=== PATIENT | female | born 1985 | race Caucasian/White ===

== ENCOUNTER 2016-05-13 07:42 | Inpatient (IN) | payer BC ==
[2016-05-13] MEDS ORDERED: METHYLERGONOVINE 0.2 MG/ML 1 ML AMP IM PRN (08:42)
[2016-05-13] MEDS ORDERED: OXYTOCIN 10 UNIT/ML 1 ML VIAL IM PRN (08:42)
[2016-05-13] MEDS ORDERED: LIDOCAINE 1% (PF) 10 MG/ML (30 ML SDV) SQ PRN (08:42)
[2016-05-13] MEDS ORDERED: CARBOPROST TROMETHAMINE 250 MCG/ML 1 ML AMP IM PRN (08:42)
[2016-05-13] MEDS ORDERED: TERBUTALINE 1 MG/ML VIAL SQ PRN (08:42)
[2016-05-13] MEDS ORDERED: OXYTOCIN 30 UNITS/500 ML NS 30 UNIT in SALINE 1 500ML.BAG IV SCH ×2 (08:45→14:00)
[2016-05-13 09:45] LABS: Appearance,Urine Clear (Clear); Bacteria,Urine Rare /hpf; Bilirubin,Urine Negative (Negative); Glucose,Urine (UA) Negative (Negative); Ketones,Urine Negative (Negative); Leukocyte Esterase,Urine Negative (Negative); Mucus,Urine Rare /hpf; Nitrite,Urine Negative (Negative); PH, Urine 6.5 (5.0-8.0); Particle Count 829; Protein,Urine Negative (Negative); RBC,Urine 1 /hpf (0-5); Specific Gravity,Urine 1.007 (1.001-1.035); UA Billing (MACRO vs. MICRO) MICRO; Urobilinogen,Urine <2.0 mg/dL (<2.0); WBC,Urine <1 /hpf (0-5)
[2016-05-13] MEDS: LACTATED RINGERS 1,000 ML IV SCH ×2 (09:48→12:43)
[2016-05-13 10:07] VITALS: BMI 48.2
[2016-05-13 10:42] LABS: Basophils # (A) 0.1 k/uL (0-0.2); Basophils % (A) 0 %; CH 29.3; CHCM 32.9; Eosinophils # (A) 0.1 k/uL (0-0.7); Eosinophils % (A) 1 %; HDW 2.41; HGB 13.2 gm/dL (11.4-16.0); Luc # (Auto) 0.19; Luc % (Auto) 2; Lymphocytes # (A) 1.9 k/uL (1.0-4.8); Lymphocytes % (A) 15 %; MCH 28.7 pg (25.0-35.0); MCHC 32.1 g/dL (31.0-37.0); MCV 89.5 fL (80.0-100.0); Mean Platelet Volume 8.2; Monocytes # (A) 0.7 k/uL (0-1.0); Monocytes % (A) 6 %; Neutrophils # (A) 9.8 k/uL (1.3-7.7); Neutrophils % (A) 77 %; RBC 4.58 m/uL (3.80-5.40); RDW 14.1 % (11.5-15.5); WBC 12.7 k/uL (3.8-10.6); WBC (Perox) 11.66
[2016-05-13 10:58] LABS: ALT 32 U/L (9-52); AST 19 U/L (14-36); LDH 350 U/L (313-618); Non-African American GFR(MDRD) >60 (>60 ml/min/1.73 sqM); Uric Acid 6.1 mg/dL (3.7-7.4)
[2016-05-13] MEDS ORDERED: fentaNYL (PF) 50 MCG/ML 5 ML AMP ONE (12:53)
[2016-05-13] MEDS ORDERED: BUPIVACAINE (PF) 0.25% 30 ML VIAL ONE (12:53)
[2016-05-13] MEDS ORDERED: SODIUM CHLORIDE 0.9% 100 ML BAG ONE (12:53)
[2016-05-13] MEDS ORDERED: Acetaminophen-Codeine 300-30mg TAB PO PRN ×2 (13:52)
[2016-05-13] MEDS ORDERED: WITCH HAZEL 1 EACH MED..PAD TOPICAL PRN (13:52)
[2016-05-13] MEDS ORDERED: diphenhydrAMINE 50 MG CAP PO PRN (13:52)
[2016-05-13] MEDS ORDERED: HYDROCORTISONE 2.5% RECTAL CREAM 30 GM TUBE RECTAL PRN (13:52)
[2016-05-13] MEDS ORDERED: diphenhydrAMINE 25 MG CAP PO PRN (13:52)
[2016-05-13] MEDS ORDERED: ZOLPIDEM 5 MG TAB PO PRN (13:52)
[2016-05-13] MEDS ORDERED: diphenhydrAMINE 50 MG/ML 1 ML VIAL IVP PRN ×2 (13:52)
[2016-05-13] MEDS ORDERED: BENZOCAINE/MENTHOL SPRAY 1 GM/SPRAY AEROSOL TOPICAL PRN (13:52)
[2016-05-13] MEDS ORDERED: SIMETHICONE 80 MG CHEWABLE PO PRN (13:52)
[2016-05-13] MEDS ORDERED: LANOLIN CREAM 5 GM TUBE TOPICAL PRN (13:52)
[2016-05-13] MEDS ORDERED: ACETAMINOPHEN TAB 325 MG TAB PO PRN (13:52)
--- NOTE | 2016-05-13 13:59 | P.HPOB ---
History of Present Illness H&P Date: 05/13/16 Chief Complaint: 39-0/7 weeks, early labor The patient is a 30-year-old 4 para 210 to presented to labor and delivery with complaints of contractions. She was scheduled for an elective induction tomorrow morning and was found on labor and delivery to have irregular contractions with a favorable cervix. She also carries a history of a previous full-term demise which was the reasoning for elective induction. She also has a history of a delivery secondary to marginal abruption of the placenta. This has been uncomplicated and group B strep status is negative. On labor and delivery, all signs are reassuring. Obstetrical history: 4 para 05/08/2001 with 2 term deliveries, one for a term demise. She is additionally had one 35+ week vaginal delivery without complications which occurred secondary to placental abruption. Current statistics are listed in history present illness. EDC of 05/20/2016 was established by last menstrual period and confirmed by 19 week ultrasound. Laboratory workup done Schutze blood type of A+ with a negative antibody screen. Rubella status is immune. All other laboratory workup was within normal limits. Early Glucola as well as second trimester Glucola were within normal limits. Group B strep status is negative. Gynecologic history: Unremarkable with no history of any infections to include STDs. Review of Systems Review of systems is confined to history of present illness. Past Medical History Past Medical History: No Reported History History of Any Multi-Drug Resistant Organisms: None Reported Additional Past Surgical History / Comment(s): knee surgery 2006 Past Anesthesia/Blood Transfusion Reactions: No Reported Reaction Past Psychological History: No Psychological Hx Reported Smoking Status: Never smoker Past Alcohol Use History: None Reported Past Drug Use History: None Reported - Past Family History Father Family Medical History: Cancer Medications and Allergies Home Medications Medication Instructions Recorded Confirmed Type No Known Home Medications [No 05/13/16 05/13/16 History Known Home Medications] Allergies Allergy/AdvReac Type Severity Reaction Status Date / Time No Known Allergies Allergy Verified 05/13/16 08:06 Exam - Vital Signs Vital signs: Vital Signs Temp Pulse Resp BP Pulse Ox 05/13/16 13:47 98.0 F 89 16 120/51 05/13/16 10:01 97.0 F L 106 H 18 165/70 97 Intake and Output 05/12/16 05/13/1605/13/17 22:59 06:59 14:59 Intake Total 3.817 Balance 3.817 Intake: Intake, IV Titration 3.817 Amount Oxytocin 30 Units/500 ml 3.817 Ns 30 unit In Saline 1 500ml.bag @ 1 MILLIUNIT/ MIN 1 mls/hr IV .Q24H [facility] Rx#:[id number] Other: Weight 131.542 kg Patient Weight 05/14/16 06:59 Weight 131.542 kg In general, this is an obese white female in no acute distress. Her heart has a regular rhythm and rate without murmur. Her lungs are clear to auscultation bilaterally in all romero. Her abdomen is obese, nondistended, has normal active bowel sounds, is soft, nontender, and without any palpable masses aside from uterine fundus. Her extremities are without any cyanosis, clubbing, or edema and are nontender to palpation bilaterally. Digital cervical examination at the time of admission demonstrated her cervix she approximately 3 cm dilated , 60-70% effaced, with the vertex in presentation at -2 station. Artificial rupture of membranes is carried out demonstrating clear fluid. Results Result Diagrams: 05/13/16 10:07 05/13/16 10:07 Abnormal Lab Results - Last 24 Hours (Table) 05/13/16 05/13/16 Range/Units 09:00 10:07 WBC 12.7 H (3.8-10.6) k/uL Neutrophils # 9.8 H (1.3-7.7) k/uL Urine Blood Trace H (Negative) Urine Bacteria Rare H (None) /hpf Urine Mucus Rare H (None) /hpf Assessment and Plan (1) Active labor at term Status: Acute (2) Previous stillbirth or demise, antepartum Status: Acute Plan: The patient is admitted for active management of labor. Rather than proceeding with induction tomorrow, we will augment her current contraction pattern today. Artificial rupture of membranes has been carried out. She will have close maternal surveillance and expectant management will be practiced. Pitocin augmentation has been started as well. She is a good candidate for either IV or epidural analgesia, whichever she may choose.
--- NOTE | 2016-05-13 14:01 | P.PROBDLV ---
Vaginal Delivery Note - . Vaginal Delivery Note: The patient is a 30-year-old 4 para 05/08/2001 admitted at 39-0/7 weeks by good dating parameters perches admitted with contractions and possible early labor with all signs reassuring. She has a history of a previous term demise for which she was scheduled to undergo elective induction tomorrow. Instead, we chose to keep her in the hospital and begin augmentation today. She had Pitocin augmentation started and underwent artificial rupture of membranes for clear fluid. She had an epidural catheter placed for analgesia and made very rapid progress to complete and +1 station. She pushed over the course of 2 contractions to a normal spontaneous vaginal delivery of a viable 8 lbs. 7 oz. baby girl with Apgars of 8 at 1 minute and 9 at 5 minutes delivered in the right occiput anterior position. There was a loose nuchal cord 1 which was reduced following delivery of the infant. The placenta was delivered spontaneously, intact, and grossly normal with a grossly normal, centrally inserted three-vessel cord. There were no lacerations of the perineum, vagina, or cervix. Estimated blood loss for the case was approximately 100 mL. There were no complications. All sponge, instrument, and needle counts were correct. Both mother and infant are resting comfortably in recovery.
[2016-05-13 16:07] VITALS: RESP 16
[2016-05-13] MEDS: SENNOSIDES-DOCUSATE SODIUM 1 EACH TAB PO SCH (19:49)
[2016-05-14] MEDS: IBUPROFEN 600 MG TAB PO PRN ×2 (02:43→12:06)
[2016-05-14] MEDS: LACTATED RINGERS 1,000 ML IV SCH (04:20)
[2016-05-14 08:32] VITALS: BP 142/82; PULSE 88; TEMP 97.7
[2016-05-14] MEDS: SENNOSIDES-DOCUSATE SODIUM 1 EACH TAB PO SCH (08:45)
--- NOTE | 2016-05-14 11:17 | P.DS ---
Providers Date of admission: 05/13/16 08:29 Expected date of discharge: 05/14/16 Attending physician: Mike Han - Discharge Diagnosis(es) (1) Active labor at term Current Visit: Yes Status: Acute (2) Previous stillbirth or demise, antepartum Current Visit: Yes Status: Acute (3) Normal spontaneous vaginal delivery Current Visit: Yes Status: Acute Hospital Course: The patient is a 30-year-old 4 para 2102 admitted at 39-0/7 weeks for augmentation of labor. She presented with complaints of contractions and was scheduled for elective induction on the following day. She carries a history of a previous full-term demise which was the social reasons for the elective induction. She additionally had one 35-36 week delivery secondary to placental abruption which was otherwise uncomplicated. On labor and delivery, she had Pitocin augmentation started and underwent artificial rupture of membranes for clear fluid. She made very rapid progress through the active phase of labor and had an epidural catheter placed at its onset. She pushed twice to a normal spontaneous vaginal delivery of a viable 8 lbs. 7 oz. baby girl with Apgars of 8 at 1 minute and 9 at 5 minutes. Her course was unremarkable with vital signs remaining stable and her temperature was afebrile throughout. She was deemed stable for discharge by day 1 was discharged home to follow-up in the office in 6 weeks' time routinely. Discharge instructions included calling for any significantly increased bleeding or foul-smelling lochia, significantly increased fever or abdominal pain, perineal complaints, breast complaints, or anything else that concerned her. She was additionally instructed to have nothing in the vagina for at least 6 weeks time to include intercourse. She understood all of her instructions and agrees to follow up as noted above. Discharge medications included continued vitamins as she has opted to breast-feed. She additionally was to take [id number] analgesic pain medications as necessary. She was also provided with a prescription for a dual electric breast pump. Maternal blood type is A+ and rubella status is immune. Procedures: #1. Pitocin augmentation #2. Artificial rupture of membranes #3. Epidural analgesia #4. Normal spontaneous vaginal delivery Patient Condition at Discharge: Good Plan - Discharge Summary Discharge Medication List No Known Home Medications [No Known Home Medications] 05/13/16 [History] Follow up Appointment(s)/Referral(s): Mike Han MD [STAFF PHYSICIAN] - 6 Weeks Discharge Disposition: HOME SELF-CARE
== END 2016-05-14 15:15 | disposition home or self-care (01) | DRG 775 ==
LOC: FBPOP 07:42 → 4FBP 08:29
PROVIDERS: ADMIT Obstetrics & Gynecology; ATTEND Obstetrics & Gynecology
PROC: 10E0XZZ Delivery of Products of Conception, External Approach (ICD-10-PCS; principal; 2016-05-13)
PROC: 00HU33Z Insertion of Infusion Device into Spinal Canal, Percutaneous Approach (ICD-10-PCS; 2016-05-13)
DX: O69.81X0 Labor and delivery complicated by cord around neck, without compression, not applicable or unspecified (principal); O99.214 Obesity complicating childbirth; Z68.42 Body mass index [BMI] 45.0-49.9, adult; Z3A.39 39 weeks gestation of pregnancy; Z37.0 Single live birth
CPT/HCPCS: 59025; 81001; 82565; 83615; 84450; 84460; 84550; 85025; 88307; 99213

== ENCOUNTER → 2018-04-27 | Outpatient (CLI) | payer BC ==
[2018-04-27 13:42] LABS: HCT 42.7 % (34.0-46.0); HGB 14.4 gm/dL (11.4-16.0); MCH 30.2 pg (25.0-35.0); MCHC 33.8 g/dL (31.0-37.0); MCV 89.4 fL (80.0-100.0); Mean Platelet Volume 7.1; Platelet Count 290 k/uL (150-450); RBC 4.77 m/uL (3.80-5.40); RDW 13.1 % (11.5-15.5); WBC 10.2 k/uL (3.8-10.6)
[2018-04-27 13:47] LABS: ALT 39 U/L (9-52); AST 20 U/L (14-36); Albumin 4.3 g/dL (3.5-5.0); Alkaline Phosphatase 39 U/L (38-126); Anion Gap 6 mmol/L; Blood Urea Nitrogen 17 mg/dL (7-17); Calcium 9.4 mg/dL (8.4-10.2); Carbon Dioxide 30 mmol/L (22-30); Chloride 105 mmol/L (98-107); Glucose 88 mg/dL (74-99); Potassium 4.4 mmol/L (3.5-5.1); Sodium 141 mmol/L (137-145); Total Bilirubin 0.4 mg/dL (0.2-1.3); Total Protein 7.5 g/dL (6.3-8.2)
--- NOTE | 2018-04-27 14:24 | US ---
EXAMINATION TYPE: US thyroid st tissue head/neck DATE OF EXAM: 04/27/2018 COMPARISON: NONE CLINICAL HISTORY: E04.9 Goiter. GLAND SIZE: Right Lobe: 4.8 x 1.7 x 1.7 cm Overall Parenchyma: homogenous Left Lobe: 5.2 x 1.7 x 1.9 cm Overall Parenchyma: homogeneous Isthmus Thickness: 0.3 cm NODULES RIGHT: # of nodules measured on right: 0 LEFT: # of nodules measured on left: 0 ISTHMUS: # of nodules measured in the isthmus: 0 Bilateral neck scanned, no evidence of lymphadenopathy. IMPRESSION: Thyromegaly with no diagnostic evidence of sizable thyroid nodule. Correlate clinically
[2018-04-27 18:55] LABS: Thyroid Peroxidase Antibodies 40.1 U/mL (0.0-60.0)
[2018-04-27 21:19] LABS: ACTH 11.4 pg/mL (0.00-45.99)
== END | disposition home or self-care (01) ==
LOC: RADUSWWP 12:44
PROVIDERS: ATTEND Internal Medicine Endocrinology, Diabetes & Metabolism
DX: E01.0 Iodine-deficiency related diffuse (endemic) goiter (principal); R53.83 Other fatigue
CPT/HCPCS: 76536; 80053; 82024; 82533; 82607; 83001; 84146; 84439; 84443; 84481; 85027; 86376